=== PATIENT | female | born 1970 | race Caucasian/White ===

== ENCOUNTER 2025-09-27 22:37 | Day surgery (SDC) | payer SELFPAY ==
[2025-09-27 19:33] VITALS: BP 123/79
--- NOTE | 2025-09-27 21:45 | ED.GENMED ---
History of Present Illness
General
Chief Complaint: Esophageal Problem
Source: patient
Exam Limitations: none
Time Seen by Provider: 09/27/25 21:08
Nursing documentation reviewed up to this point in time: agreed with
History of Present Illness
History of Present Illness:
Patient to the emergency department with complaint of an esophageal food impaction. States she was eating turkey sausage approximately 3 hours ago and a piece became lodged in her esophagus. She had a similar event many years ago and required
retrieval. She is unable to swallow secretions. Brought to the emergency department by her son for evaluation. She denies any difficulty breathing.
Past History
Past History
ED Past Medical History: None and Other (denies previous neck, back injury or sciatica)
ED Past Surgical History: (x 3)
Social History
Tobacco: Non-smoker
Personal:
Living: with family
Employment: Not employed
Review of Systems
Review of Systems
Allergies reviewed?: Yes
All Other Systems: ROS reviewed and negative except as documented in HPI and ROS
Constitutional: Reports no symptoms
EENT: Reports other (Esophageal bolus)
Respiratory: Reports no symptoms
Cardiac: Reports no symptoms
ABD/GI: Reports other (Esophageal bolus)
: Reports no symptoms
Musculoskeletal: Reports no symptoms
Skin: Reports no symptoms
Neurological: Reports no symptoms
Psychiatric: Reports no symptoms
Phy Exam
General Physical Exam
General Presentation: mild distress
General age: appears stated age
General Skin: warm and dry
Cardiovascular Exam
Cardiovascular Exam: regular rate/rhythm
Pulmonary Exam
Pulmonary Exam: lungs clear, no respiratory distress, no stridor and no wheezing
Musculoskeletal Exam
Musculoskeletal Exam: full ROM and neuro vasc intact
Skin Exam
Skin Exam: normal color, warm/dry and no rash
Psychiatric Exam
Psychiatric Exam: normal mood/affect
Course
Orders/Labs/Results
Orders:
Orders
09/27/25 21:35
Glucagon [GlucaGen] 1 mg IV NOW STA
09/27/25 22:08
Ondansetron Injectable [Zofran] 4 mg .ROUTE .STK-MED ONE
09/27/25 22:09
Ondansetron Injectable [Zofran] 4 mg IV NOW STA
09/27/25 22:12
Dexamethasone Sod Phosphate [Decadron] 20 mg .ROUTE .STK-MED ONE
Lidocaine HCl/Pf [Xylocaine-Mpf 1% Vial] 50 mg .ROUTE .STK-MED ONE
Ondansetron Injectable [Zofran] 4 mg .ROUTE .STK-MED ONE
Phenylephrine HCl/0.9% NaCl [Todd-Synephrine] 1,000 mcg .ROUTE .STK-MED ONE
Propofol [Diprivan] 20 ml .ROUTE .STK-MED
Rocuronium [place] [Rocuronium] 100 mg .ROUTE .STK-MED ONE
Succinylcholine Chloride [Succinylcholine] 200 mg .ROUTE .STK-MED ONE
Sugammadex Sodium [Bridion] 400 mg .ROUTE .STK-MED ONE
09/27/25 22:42
Midazolam HCl [Versed] 2 mg .ROUTE .STK-MED ONE
09/27/25 22:57
Fentanyl Citrate/Pf [Sublimaze] 25 mcg IV [id number] PRN
HYDROmorphone [Dilaudid] 0.25 mg IV [id number] PRN
HYDROmorphone [Dilaudid] 0.5 mg IV [id number] PRN
Ondansetron Injectable [Zofran] 4 mg IV PACU-ONCEPRN PRN
Prochlorperazine [Compazine] 5 mg IV PACU-ONCEPRN PRN
09/27/25 22:58
Notify MD As Directed
Notify physician if: for SDS patients with known or suspected sleep obstructive sleep apnea, monitor in the
PACU.
Notify MD for any apneic/desaturation episodes
O2 Therapy [RESP] Urgent
Titrate/Wean O2 to maintain O2 sat greater than (%): 92
Special Instructions: -Provide supplemental oxygen to achieve O2 sat of 92% or greater.
-After 15 min, may wean O2 and discontinue if patient is able to maintain O2 sat of 92%
or greater during recovery period.
If patient is a discharge home, without oxygen therapy, notify anestheiologist if
unable to maintain O2 SAT of 92% or greater on room air for MD clearance.
09/27/25 23:00
Normosol (Mult Electrolytes) [Normosol-R/Plasmalyte-A] 1,000 ml IV PER PROTOCOL
Vital Signs
Initial and Last Documented VS:
Initial Vital Signs
Temp Pulse Resp BP Pulse Ox
98.7 F 102 16 123/79 98
09/27/25 19:33 09/27/25 19:33 09/27/25 19:33 09/27/25 19:33 09/27/25 19:33
Last Documented Vital Signs
Temp Pulse Resp BP Pulse Ox
98.7 F 75 16 103/64 99
09/27/25 19:33 09/27/25 22:15 09/27/25 19:33 09/27/25 22:11 09/27/25 22:15
*Pulse Oximetry
SaO2: 98
Oxygen Mode of Delivery: Room air
Patient hypoxic: no
*Critical Care Note
Total Time (30-74mins, 75-104mins- exclusive of procedures): Not Applicable
Update Note
Update Note:
Patient to the emergency department accompanied by her son with report of esophageal food impaction. She reports she was eating turkey sausage approximately 3 hours ago when a piece became lodged in her esophagus. She is unable to swallow
secretions. She has had no difficulty breathing. Vital signs are stable. She was given glucagon in the ED, currently without improvement. Dr. Higuera was notified. Patient will be transferred to the GI lab for retrieval of esophageal impaction.
Patient and son were notified of plan and are agreeable.
ED Attending Note
-
Portions of this chart may have been created with voice recognition software.� Occasional wrong word or��sound alike� substitutions may have occurred due to the inherent limitations of voice recognition software.
Discharge Plan
Departure
Patient Disposition: OR
Presentation/result/management discussed w/ accepting MD/DO: Dr. Higuera
Patient with high blood pressure during this ER visit?: Yes
Condition: Fair
Discharge Problem:
Esophageal obstruction due to food impaction
Interventions
Interventions:
*Risk Screen - Suicide Last Done: 09/27/25 19:35
*General Assessment Last Done: 09/27/25 20:54
*Neglect/Abuse Screening Last Done: 09/27/25 19:35
*ED- Fall Risk Assessment Last Done: 09/27/25 20:54
*ED COVID-19 Vaccine History Last Done: 09/27/25 20:54
*ED Influenza Vaccine History Last Done: 09/27/25 20:54
*Nursing Disposition Last Done: 09/27/25 22:30
GV-Zdlcyo-Bmfktikcff Assessment Last Done: 09/27/25 20:51
ED-EENT Assessment Last Done: 09/27/25 20:51
Discharge Date and Time
Discharge Date/Time: 09/27/25 22:31
[2025-09-27 22:07] VITALS: BMI 38.6
[2025-09-27] MEDS: ZOFRAN 4 MG IV (22:10)
[2025-09-27 22:11] VITALS: BP 103/64
[2025-09-27 23:38] VITALS: BP 103/64
[2025-09-27 23:39] VITALS: BP 94/62
--- NOTE | 2025-09-27 23:40 | HP.FOC2 ---
Focused History & Physical
Chief Complaint
HPI:
Chief Complaint: Food impaction
HPI / Indication for Planned Procedure:
Deb is a 55-year-old female with history of food impaction in 2006 who has not sought medical care since who has intermittent issues with dysphagia and heartburn, not on PPI who was eating sausage about 6 hours ago and since then has not been able
to tolerate secretions. She is comfortable at this time. Glucagon was attempted without improvement. She has not been seen by GI. No family history of esophageal issues. No weight loss. Takes a very rare Prilosec for heartburn. She vapes but
no alcohol.
Denies any dysphagia to liquids unless they are very cold. Denies any abdominal pain. No pulmonary or cardiac issues.
Relevant Past Medical History: Other (GERD, prior food impaction)
Relevant Social History: Tobacco Use (Vapes nicotine)
Relevant Family History: Negative
Relevant Past Surgical History: Positive for (Cosmetic)
Review of Systems
Review of Pertinent Systems: All Systems Negative
Medication
See Medication form for detailed medications: No
Medication List (including Herbals & OTC):
No Meds [No Current Medications] 09/27/25
Medications Reviewed: Yes
Allergies and Reactions
Patient has Allergies: No
Noted Allergies and Reactions:
Allergy/AdvReac Type Severity Reaction Status Date / Time
No Known Allergies Allergy Verified 09/27/25 21:02
Pertinent Physical Exam
All Other Systems: Negative
Head/Neck: Normal
Lungs: Normal
Heart: Normal
Abdomen: Normal
Extremities: Normal
Diagnosis / Assessment
Food impaction
Plan / Procedure
Urgent endoscopy under general anesthesia
Anesthesia/Sedation to be done by Anesthesia Provider: Yes
[2025-09-27 23:45] VITALS: BP 104/60
[2025-09-28] VITALS: BP 106/81
[2025-09-28 00:09] VITALS: BP 117/74
[2025-09-28 00:10] VITALS: BP 117/74
== END 2025-09-28 00:16 | disposition home or self-care (01) ==
LOC: SDS 22:37
PROVIDERS: ATTENDING PHYSICIAN Internal Medicine; EMERGENCY PHYSICIAN Emergency Medicine
DX: K20.0 Eosinophilic esophagitis (principal); T18.128A Food in esophagus causing other injury, initial encounter; T18.108A Unspecified foreign body in esophagus causing other injury, initial encounter; W44.F3XA Food entering into or through a natural orifice, initial encounter; K22.89 Other specified disease of esophagus; R13.10 Dysphagia, unspecified
CPT/HCPCS: 43247; 43239; 88305; 99285; J1610